=== PATIENT | male | born 1930 | race Caucasian/White ===

== ENCOUNTER 2016-06-18 15:30 | Emergency (ER) | payer OTHER ==
[2016-06-18 15:56] VITALS: RESP 20; TEMP 98.1
--- NOTE | 2016-06-18 16:05 | CPEKG ---
Heart Rate: 61 RR Interval: 984 P-R Interval: 156 QRSD Interval: 92 QT Interval: 408 QTC Interval: 411 P [place]: 67 QRS [place]: 14 T Wave [place]: 77 EKG Severity - NORMAL ECG - EKG Impression: SINUS RHYTHM EKG Impression: T-wave inversions V2, V3-nonspecific anterior T-wave abnormalities Electronically Signed By: Da Marmolejo 18-Jun-2016 19:29:42
[2016-06-18] MEDS ORDERED: ASPIRIN 81 MG CHEWABLE TAB PO ONE (16:12)
[2016-06-18 16:30] LABS: % IMMATURE GRANULYOCYTES 0.8 % (0.0-1.1); ABSOLUTE IMMATURE GRANULOCYTES 0.05 10^3/uL (0.00-0.10); ADD DIFF? NO; ADD MORPH? NO; ADD SCAN? NO; ATYPICAL LYMPHOCYTE FLAG 10 (0-99); FRAGMENT RBC FLAG 0 (0-99); HEMATOCRIT 32.2 % (40.0-51.0); HEMOGLOBIN 11.1 g/dL (13.7-17.5); LEFT SHIFT FLG 0 (0-99); LIPEMIA HEMOLYSIS FLAG 90 (0-99); MEAN CELL HEMOGLOBIN 31.6 pg (27.9-34.1); MEAN CELL HEMOGLOBIN CONCENTR. 34.5 g/dL (32.4-36.7); MEAN CELL VOLUME 91.7 fL (81.5-99.8); MEAN PLATELET VOLUME 8.7 fL (8.7-11.7); PLATELET CLUMPS FLAG 0 (0-99); PLATELET COUNT 282 10^3/uL (150-400); RED BLOOD CELL COUNT 3.51 10^6/uL (4.40-6.38); RED CELL DISTRIBUTION WIDTH 14.3 % (11.5-15.2)
[2016-06-18] MEDS ORDERED: IPRATROPIUM/ALBUTEROL 3 ML DEYVIAL IH ONE (16:34)
[2016-06-18 16:42] LABS: ANION GAP 16 mEq/L (8-16); CALCIUM 8.9 mg/dL (8.5-10.4); CARBON DIOXIDE 31 mEq/l (22-31); CHLORIDE 93 mEq/L (97-110); CREATININE 2.7 mg/dL (0.7-1.3); GLOMERULAR FILTRATION RATE 23; GLUCOSE 97 mg/dL (70-100); POTASSIUM 3.3 mEq/L (3.5-5.2); SODIUM 140 mEq/L (134-144)
[2016-06-18 16:55] LABS: TROPONIN I < 0.012 ng/mL (0-0.034)
[2016-06-18] MEDS ORDERED: AZITHROMYCIN 250 MG TAB PO ONE (17:09)
--- NOTE | 2016-06-18 17:17 | UCPHY ---
H & P Patient Type: Established Chief Complaint Nursing Narrative: cough x 3 weeks . hard to sleep and decreased appetite. Denies F/C. Had dialysis today Time Seen by Provider: 06/18/16 15:38 HPI/ROS: This patient reports a 3 week history of coughing that is both a dry hacky cough at times and feeling of chest congestion. He reports onset over the past week of decreased appetite and fatigue. He reports some difficulty sleeping due to frequent coughing. He has not noticed any fevers with this illness. He notes no exacerbating factors but he is not improving. ROS: No high fevers or chills in fact no fevers noted at home. Positive fatigue as mention. HEENT: Mild nasal congestion per his . No other HEENT complaints. Pulmonary: No pleuritic pain. No respiratory distress. He has not noticed any significant dyspnea. Cardiovascular: No lightheadedness no lower extremity swelling . No heart palpitations. GI: No nausea or vomiting. No diarrhea. : No complaints skin: No rash endocrine: No diaphoresis. 10 point ROS is otherwise negative. Source: Patient Exam Limitations: No limitations - Personal History Current Tetanus Diphtheria and Acellular Pertussis (TDAP): Unsure - Medical/Surgical History Hx Diabetes: No Other PMH: SEIZURES FOR 5 YEARS, URINARY SURG. kidney failure dialysis - Family History Significant Family History: No pertinent family hx - Social History Smoking Status: Former smoker Alcohol Use: None Drug Use: None - Physical Exam Exam: General Appearance: Alert, no distress. Eyes: Pupils equal and round no pallor or injection. ENT, Mouth: Mucous membranes moist. Respiratory: Expiratory wheeze and rhonchi bilaterally. No rales. Cardiovascular: Regular rate and rhythm. No murmur gallop rub. No JVD. No peripheral edema. Gastrointestinal: Abdomen is soft and nontender, no masses, bowel sounds normal. Neurological: Alert with no focal deficits. Skin: Warm and dry, no rashes. Musculoskeletal: Neck is supple nontender. Extremities are symmetrical, full range of motion. Psychiatric: Mood and affect normal. DIFFERENTIAL DIAGNOSIS: After history and physical exam differential diagnosis was considered for Bronchitis, CHF, coronary syndrome, pneumonia Constitutional: Initial Vital Signs Temperature (C) 36.7 C 06/18/16 15:40 Heart Rate 65 06/18/16 15:40 Respiratory Rate 20 06/18/16 15:40 Blood Pressure 116/54 L 06/18/16 15:40 O2 Sat (%) 92 06/18/16 15:40 O2 Delivery Mode Room Air Allergies/Adverse Reactions: Penicillins Allergy (Intermediate, Verified 06/18/16 15:55) Hives Home Medications: Medication Instructions Recorded Albuterol Hfa Anes Only [Proair 2 puffs IH Q4 PRN #1 mdi 06/18/16 Hfa Icu (*)] Azithromycin [Zithromax] 250 mg PO DAILY #4 tab 06/18/16 Guaifenesin/Codeine Phosphate 5 - 10 ml PO Q6 PRN #120 ml 06/18/16 [Guaifenesin-Codeine Liquid] Medical Decision Making - Diagnostics EKG Interpretation: 12 lead EKG performed at 4:03 p.m. reveals sinus rhythm at 61 Intervals normal throughout [place]: Normal throughout ST segments: T-wave inversions are present in leads V2 and V3 when compared to an EKG dated August 02, 2015 these inversions are new for him. Overall assessment: Normal sinus rhythm-mild anterior T-wave abnormalities cannot rule out anterior ischemia. Imaging: Chest x-ray: Airway disease without pneumonia, elevated left hemidiaphragm by my interpretation ED Course/Re-evaluation: DuoNeb with increased aeration decreased wheeze some subjective improvement Labs reveal normal troponin, unremarkable electrolytes, CBC with mild leukocytosis. Discussion: This patient has acute bronchitis. Given his fatigue and age pursued of more of workup. I think that is subtle T-wave abnormalities may be related to electrolyte changes since going on hemodialysis. I counseled regarding this. He's also given Zithromax 500 p. o. and will follow up with primary care physician with Cardiology for further evaluation. - Data Points Laboratory Results: Laboratory Results 06/18/16 16:23 06/18/16 16:23 06/18/16 06/18/16 16:23 16:23 WBC 6.38 10^3/uL 10^3/uL (3.80-9.50) RBC 3.51 10^6/uL L 10^6/uL (4.40-6.38) Hgb 11.1 g/dL L g/dL (13.7-17.5) Hct 32.2 % L % (40.0-51.0) MCV 91.7 fL fL (81.5-99.8) MCH 31.6 pg pg (27.9-34.1) MCHC 34.5 g/dL g/dL (32.4-36.7) RDW 14.3 % % (11.5-15.2) Plt Count 282 10^3/uL 10^3/uL (150-400) MPV 8.7 fL fL (8.7-11.7) Neut % (Auto) 59.1 % % (39.3-74.2) Lymph % (Auto) 27.9 % % (15.0-45.0) [place] % (Auto) 7.8 % % (4.5-13.0) Eos % (Auto) 4.2 % % (0.6-7.6) Baso % (Auto) 0.2 % L % (0.3-1.7) Nucleat RBC Rel Count 0.0 % % (0.0-0.2) Absolute Neuts (auto) 3.77 10^3/uL 10^3/uL (1.70-6.50) Absolute Lymphs (auto) 1.78 10^3/uL 10^3/uL (1.00-3.00) Absolute Monos (auto) 0.50 10^3/uL 10^3/uL (0.30-0.80) Absolute Eos (auto) 0.27 10^3/uL 10^3/uL (0.03-0.40) Absolute Basos (auto) 0.01 10^3/uL L 10^3/uL (0.02-0.10) Absolute Nucleated RBC 0.00 10^3/uL 10^3/uL (0-0.01) Immature Gran % 0.8 % % (0.0-1.1) Immature Gran # 0.05 10^3/uL 10^3/uL (0.00-0.10) Sodium 140 mEq/L mEq/L (134-144) Potassium 3.3 mEq/L L mEq/L (3.5-5.2) Chloride 93 mEq/L L mEq/L (97-110) Carbon Dioxide 31 mEq/l mEq/l (22-31) Anion Gap 16 mEq/L mEq/L (8-16) BUN 8 mg/dL mg/dL (7-23) Creatinine 2.7 mg/dL H mg/dL (0.7-1.3) Estimated GFR 23 Glucose 97 mg/dL mg/dL (70-100) Calcium 8.9 mg/dL mg/dL (8.5-10.4) Troponin I < 0.012 ng/mL ng/mL (0-0.034) Medications Given: Discontinued Medications Albuterol/Ipratropium (Duoneb) 3 ml IH EDNOW ONE Stop: 06/18/16 16:35 Last Admin: 06/18/16 16:45 Dose: 3 ml Aspirin (Aspirin) 324 mg PO EDNOW ONE Stop: 06/18/16 16:13 Last Admin: 06/18/16 16:15 Dose: 324 mg Azithromycin (Zithromax) 500 mg PO EDNOW ONE PRN Reason: Protocol Stop: 06/18/16 17:10 Last Admin: 06/18/16 17:19 Dose: 500 mg Departure - Departure Disposition: Home, Routine, Self-Care Clinical Impression: Acute bronchitis Qualifiers: Bronchitis organism: unspecified organism Qualified Code(s): J20.9 - Acute bronchitis, unspecified Fatigue Qualifiers: Fatigue type: other Qualified Code(s): R53.83 - Other fatigue Condition: Good Instructions: Acute Bronchitis (ED) Additional Instructions: Diagnoses: 1. Acute bronchitis 2. Fatigue Plan: Albuterol inhaler with spacer for cough, wheeze or shortness of breath Humidifier Zithromax antibiotic Guaifenesin with codeine for cough prevents sleep at night Given slight change in her EKG from prior EKG, recommend follow up with Dr. Martinez multimedia services coordinator of her choice sometime within the next week Follow up with primary care physician if her current symptoms do not resolve over the next week with treatment plan Go to the emergency department if he develops significant shortness of breath despite the medications, chest pain or other concerns. Referrals: SAI RIVERA [Primary Care Provider] - As per Instructions Desire Martinez MD [Medical Doctor] - As per Instructions Prescriptions: Albuterol Hfa Anes Only [Proair Hfa Icu (*)] 2 puffs IH Q4 PRN #1 mdi PRN Reason: Wheezing Azithromycin [Zithromax] 250 mg PO DAILY #4 tab Guaifenesin/Codeine Phosphate [Guaifenesin-Codeine Liquid] 5 - 10 ml PO Q6 PRN # 120 ml PRN Reason: Cough - PQRS PQRS Measurement: 134: Depression screening and followup, PRIME MD-PHQ2 (12 years and older) Over the last 2 weeks, how often have you been bothered by any of the following problems? 1. Feeling down, depressed, or hopeless? 2. Little interest or pleasure in doing things? Patient answered no to both 1 and 2 130: Documentation of medications. Reviewed all patient medications, doses, route and frequency. 226: Do you smoke? [No.] 47: 65 and older: Advanced care planning. Patient designates surrogate decision maker as spouse 51: 18 years old and older with diagnosis of COPD, spirometry performance. NA 52: 18 years old and older with COPD and symptoms of COPD or FEV1<60% predicted prescribed a B Agonist. NA
[2016-06-18 17:29] VITALS: BP 127/52; PULSE 64; O2SAT 91
== END 2016-06-18 17:29 | disposition home or self-care (01) ==
LOC: CED 15:30
DX: J20.9 Acute bronchitis, unspecified (principal); R53.83 Other fatigue; N18.9 Chronic kidney disease, unspecified; Z87.891 Personal history of nicotine dependence; Z99.2 Dependence on renal dialysis
CPT/HCPCS: 71020; 93005; G0463; 80048-PO; 84484-PO; 85025-PO; 93010-PO; 99215-PO

== ENCOUNTER 2018-03-27 17:15 | Emergency (ER) | payer OTHER ==
--- NOTE | 2018-03-27 17:44 | EDPHY ---
H & P Time Seen by Provider: 03/27/18 17:20 HPI/ROS: CHIEF COMPLAINT: Fall with facial trauma HISTORY OF PRESENT ILLNESS: Patient lost his balance when he was at the [employer] and fell hitting his face on the ground. Presents by EMS with nasal laceration and nose bleed. Denies loss of consciousness headache neck or back pain or weakness or numbness in extremities. He has some mild nasal pain. Not better worse with anything. Started after the fall. Does not radiate. REVIEW OF SYSTEMS: Eye: no change in vision ENT: Left-sided nose bleed Cardiac: no chest pain or syncope Pulmonary: no cough or SOB Abdomen: no vomiting, diarrhea, abdominal pain Musculoskeletal: no back pain or neck pain Skin: Bridge of the nose laceration and forehead abrasion Neuro: no headache Constitutional: no fever : no urinary symptoms A comprehensive 10 point review of systems is otherwise negative aside from elements mentioned in the history of present illness. PAST MEDICAL HISTORY: Includes seizures, dialysis Social history: here with his General Appearance: Alert and conversant, cooperative. Eyes: No scleral icterus. ENT, Mouth: No septal hematoma, has left nares anterior bleeding. 1 cm nasal bridge laceration vertically. Respiratory: Normal respiratory effort, breath sounds equal, lungs are clear to auscultation. Cardiovascular: Regular rate and rhythm. Gastrointestinal: Abdomen is soft and non tender. Neurological: Alert, face symmetric, normal motor and sensory in extremities. Skin: Nasal laceration and forehead abrasion otherwise negative. Musculoskeletal: No cervical thoracic or lumbar spine tenderness to palpation, no extremity or clavicular tenderness. Psychiatric: Not agitated. Emergency Department course/MDM: Cervical spine cleared clinically by myself. Clearly mechanical in nature and not syncope by history. Does not appear to have any other injuries besides his face and head. Procedure: Nasal packing Indication is left anterior nose bleed, dialysis patient Verbal consent obtained from the patient 0.5% bupivacaine with epinephrine topical anesthesia, inspected with otoscope and headlight Merocel nasal pack placed in the left anterior nares with good hemostasis; large area of oozing and bleeding on septum, clinically appeared too big for cauterization especially in patient with dialysis and dysfunctional platelets. Procedure: Laceration repair. Verbal consent was obtained from the patient. The 1cm laceration on the nasal bridge was anesthetized using 0.5% bupivacaine without epinephrine. The wound was irrigated with standard emergency department protocol, draped and explored. There were no deep structures involved. No foreign body found. The wound was repaired with a 5 0 Prolene. The wound repair was simple. Excellent hemostasis was obtained. Wound care instructions were discussed and the patient was warned regarding scarring. The procedure was performed by myself. CT per Dr. Oneil shows nasal bone fracture, otherwise face and head are negative at 6:[address] head performed for head trauma and age, higher risk for bleeding because of dialysis. Oral clindamycin chosen for antibiotic with penicillin allergy giving him hives. Unknown if can take cephalosporins safely. 1940: Helena Mackenzie ENT, F/u this coming Saturday. Smoking Status: Former smoker Constitutional: Initial Vital Signs Temperature (C) 36.8 C 03/27/18 17:22 Heart Rate 81 03/27/18 17:22 Respiratory Rate 18 03/27/18 17:22 Blood Pressure 174/103 H 03/27/18 17:22 O2 Sat (%) 96 03/27/18 17:22 O2 Delivery Mode Room Air Allergies/Adverse Reactions: Penicillins Allergy (Intermediate, Verified 06/18/16 15:55) Hives Home Medications: Medication Instructions Recorded Clindamycin HCl [Clindamycin] 300 mg PO TID #21 cap 03/27/18 Tylenol 03/27/18 Medical Decision Making - Diagnostics Imaging Results: Imaging Impressions Face CT 03/27/18 17:32 Impression: 1. Negative noncontrast CT of the brain for acute intracranial hemorrhage 2. Comminuted nasal bone fracture including displaced fracture of the vomer.. Results called to Dr. Jony Phoenix at 6:00 PM at the time of the interpretation. Head CT 03/27/18 17:32 Impression: 1. Negative noncontrast CT of the brain for acute intracranial hemorrhage 2. Comminuted nasal bone fracture including displaced fracture of the vomer.. Results called to Dr. Jony Phoenix at 6:00 PM at the time of the interpretation. Imaging: Discussed imaging studies w/ ict business development manager Radiologist Differential Diagnosis: Differential diagnosis considered for head injury including but not limited to concussion, skull fracture, intraparenchymal contusion, subarachnoid, subdural and epidural hematoma. - Data Points Medications Given: Discontinued Medications Clindamycin (Clindamycin) 300 mg PO EDNOW ONE PRN Reason: Protocol Stop: 03/27/18 18:52 Last Admin: 03/27/18 20:07 Dose: 300 mg Departure - Departure Disposition: Home, Routine, Self-Care Clinical Impression: Epistaxis Nasal laceration Qualifiers: Encounter type: initial encounter Qualified Code(s): S01.21XA - Laceration without foreign body of nose, initial encounter Condition: Good Instructions: Laceration (ED), Nosebleed (ED) Additional Instructions: See ENT office on Saturday for followup nasal fracture and nosebleed. Wound Care Follow-Up: Removal of sutures in 5 days. Suture removal is complimentary in uncomplicated cases. Infection or abnormal findings would require reevaluation by the MD. In that case, you may be billed. Referrals: Helena Mackenzie PA [Physician Medicaid Billing Specialist] - As per Instructions Gerard Estrella MD [Medical Doctor] - As per Instructions Prescriptions: Clindamycin HCl [Clindamycin] 300 mg PO TID #21 cap
[2018-03-27] MEDS ORDERED: CLINDAMYCIN 150 MG CAP PO ONE (18:51)
[2018-03-27 20:31] VITALS: BP 172/72
== END 2018-03-27 20:37 | disposition home or self-care (01) ==
LOC: EDBD → EDUNIT#
PROC: 2Y41X5Z Packing of Nasal Region using Packing Material (ICD-10-PCS; principal; 2018-03-27)
PROC: 09QKXZZ Repair Nasal Mucosa and Soft Tissue, External Approach (ICD-10-PCS; 2018-03-27)
DX: S01.21XA Laceration without foreign body of nose, initial encounter (principal); R04.0 Epistaxis; W19.XXXA Unspecified fall, initial encounter; Y92.512 Supermarket, store or market as the place of occurrence of the external cause; Y93.9 Activity, unspecified; Y99.8 Other external cause status

== ENCOUNTER 2018-03-28 03:00 | Emergency (ER) | payer OTHER ==
[2018-03-28] MEDS ORDERED: OXYMETAZOLINE 30 ML NASAL SPRAY ONE (03:06)
--- NOTE | 2018-03-28 03:12 | EDPHY ---
H & P Time Seen by Provider: 03/28/18 03:06 HPI/ROS: HPI CHIEF COMPLAINT: Epistaxis HISTORY OF PRESENT ILLNESS: Very pleasant 87-year-old male, seen in the emergency room earlier today with a fall, sustaining a nasal bone fracture, epistaxis. Patient was packed. He also had sutures placed. He presents back to the emergency room at 3:00 a.m. In the morning with ongoing epistaxis. Denies any other complaints. Patient had CT scan of his head and face. Showed nasal bone fracture. He was packed with a packing in his left Nare. On clindamycin due to packing. Due to follow up with ENT. Past Medical History: Seizures, end-stage renal disease. Dialysis. Past Surgical History: No recent surgery Social History: Denies drugs alcohol tobacco. Resides at the [facility]. Family History: denies ROS REVIEW OF SYSTEMS: 10 Systems were reviewed and negative with the exception of the elements mentioned in the history of present illness. Exam Constitutional triage nursing summary reviewed, vital signs reviewed, awake/ alert. Vitals Hypertensive. Eyes normal conjunctivae and sclera, EOMI, PERRLA. HENT Bilateral Nare epistaxis present. moist mucus membranes, no epistaxis, neck supple/ no meningismus, no raccoon eyes. Respiratory clear to auscultation bilaterally, normal breath sounds, no respiratory distress, no wheezing. Cardiovascular rate normal, regular rhythm, no murmur, no edema, distal pulses normal. Gastrointestinal soft, non-tender, no rebound, no guarding, normal bowel sounds, no distension, no pulsatile mass. Genitourinary no CVA tenderness. Musculoskeletal no midline vertebral tenderness, full range of motion, no calf swelling, no tenderness of extremities, no meningismus, good pulses, neurovascularly intact. Skin pink, warm, & dry, no rash, skin atraumatic. Neurologic awake, alert and oriented x 3, AAOx3, moves all 4 extremities equally, motor intact, sensory intact, CN II-XII intact, normal cerebellar, normal vision, normal speech. Psychiatric normal mood/affect. Heme/Lymph/Immune no lymphadenopathy. Differential Diagnosis: Includes but is not limited to in a particular order traumatic epistaxis, anterior nose bleed, posterior nosebleed Medical Decision Making: Plan for this patient I removed his packing, reexamine. Apply direct pressure. He appears to be bleeding left Nare anterior pain Re-evaluation: Procedure: Epistaxis control. After verbal consent was obtained, the patient was anesthetized with AFRIN The anterior epistaxis was identified. The patient was treated with NASAL Packing. 7.5AP RhinoRocket placed in left nare. Following the procedure the patient was re-examined and the bleeding was well controlled. The patient tolerated the procedure well. The procedure was performed by myself. The packing was removed from the previous placement earlier yesterday. This was removed out of the left nare. Although clot was removed. Appears to be an anterior nose bleed. A new packing was placed 7.5 AP rhino rocket please see above. Patient understands he will need to follow up with ENT. Start clindamycin. Return emergency room if there is further bleeding questions or concerns. [id number]: Patient continues to do well. Good Hemostasis. No further bleeding. Packing inplace Left nare. Needs to be removed over the next 48 hours. Follow up ENT. Return if worse/re-bleeding, not doing well. Patient understands and and patient are comforable with this. Source: Patient, EMS - Medical/Surgical History Hx Diabetes: No Other PMH: SEIZURES FOR 5 YEARS, URINARY SURG. kidney failure dialysis - Social History Smoking Status: Former smoker Constitutional: Initial Vital Signs Temperature (C) 36.3 C 03/28/18 03:09 Heart Rate 85 03/28/18 03:09 Respiratory Rate 18 03/28/18 03:09 Blood Pressure 188/100 H 03/28/18 03:09 O2 Sat (%) 93 03/28/18 03:09 O2 Delivery Mode Room Air Allergies/Adverse Reactions: Penicillins Allergy (Intermediate, Verified 03/28/18 03:12) Hives Home Medications: Medication Instructions Recorded Clindamycin HCl [Clindamycin] 300 mg PO TID #21 cap 03/27/18 Tylenol 03/27/18 Departure - Departure Disposition: Home, Routine, Self-Care Clinical Impression: Epistaxis Instructions: Nosebleed (ED) Additional Instructions: 1. YOU NEED TO CALL ENT DOCTOR AND SET UP A FOLLOW UP APPOINTMENT TO HAVE PACKING REMOVED. 2. RETURN TO ER IF QUESTIONS, CONCERNS OR NOT DOING WELL. Referrals: Patient,NotPresent [Primary Care Provider] - As per Instructions Helena Mackenzie PA [Physician Concrete Pipe Maker] - As per Instructions Gerard Estrella MD [Medical Doctor] - As per Instructions
[2018-03-28 04:32] VITALS: BP 174/89
== END 2018-03-28 04:40 | disposition home or self-care (01) ==
LOC: EDUNIT#
PROC: 2Y41X5Z Packing of Nasal Region using Packing Material (ICD-10-PCS; principal; 2018-03-28)
DX: R04.0 Epistaxis (principal)